=== PATIENT | female | born 1990 | race Caucasian/White ===

== ENCOUNTER 2021-05-09 14:09 | Emergency (ER) | payer SELFPAY ==
[~2021-05-09] VITALS: Ht 170.2 cm; Wt 123.0 kg
--- NOTE | 2021-05-09 15:36 | PHYS DOC ---
Past History Additional Past Medical Histor: DDD, vertigo Past Surgical History: Tonsillectomy Additional Past Surgical Histo: left knee Alcohol Use: None General Adult EDM: Chief Complaint: LOWER EXTREMITY SWELLING HPI: HPI: 30-year-old female presents with bilateral lower extremity swelling. In fact, she feels like she has increased swelling in her face and hands as well. She is unsure why this is happened. Its been this way for a couple of days. It does not improve at night. She has had similar episodes of lower leg swelling in the past that went away on its own. She was previously told that she had a low potassium once but that is all. No history of heart failure or other cardiac issues. Patient also complains about multiple open sores on her body. She states that she got burned from recycling of battery on her arms but is unsure why she has sores on her scalp. She denies fever or chills. Review of Systems: Review of Systems: Constitutional: Denies fever or chills Eyes: Denies change in visual acuity HENT: Denies nasal congestion or sore throat Respiratory: Denies cough or shortness of breath Cardiovascular: Bilateral lower extremity edema GI: Denies abdominal pain, nausea, vomiting, bloody stools or diarrhea : Denies dysuria Musculoskeletal: Denies back pain or joint pain Integument: Open sores of the face and scalp Neurologic: Denies headache, focal weakness or sensory changes Endocrine: Denies polyuria or polydipsia Lymphatic: Denies swollen glands Psychiatric: Denies depression or anxiety Allergies: Allergies: Allergies Coded Allergies Type Severity Reaction Last Updated Verified Penicillins Allergy Unknown 05/09/21 Yes codeine Allergy Unknown 05/09/21 Yes Uncoded Allergies Type Severity Reaction Last Updated Verified SULFA Allergy Unknown 05/09/21 Physical Exam: PE: Constitutional: Well developed, well nourished, morbidly obese, no acute distress, non-toxic appearance. [] HENT: Normocephalic, atraumatic, bilateral external ears normal, oropharynx moist, no oral exudates, nose normal. [] Eyes: PERRLA, EOMI, conjunctiva normal, no discharge. [] Neck: Normal range of motion, no tenderness, supple, no stridor. [] Cardiovascular: Heart rate regular rhythm, no murmur [] Lungs & Thorax: Bilateral breath sounds clear to auscultation [] Abdomen: Bowel sounds normal, soft, no tenderness, no masses, no pulsatile masses. [] Skin: Multiple open sores of different ages on the patient's bilateral arms, face, and scalp. No obvious cellulitis or abscess. [] Back: No tenderness, no CVA tenderness. [] Extremities: No tenderness, no cyanosis, no clubbing, ROM intact, 2+ nonpitting edema of the bilateral lower extremities up to the knee. [] Neurologic: Alert and oriented X 3, normal motor function, normal sensory function, no focal deficits noted. [] Psychologic: Affect normal, judgement normal, mood normal. [] Current Patient Data: Vital Signs: Vital Signs Date Time Temp Pulse Resp B/P (MAP) Pulse Ox O2 Delivery O2 Flow Rate FiO2 05/09/21 14:20 105 18 147/113 98 Room Air EKG: EKG: [] Radiology/Procedures: Radiology/Procedures: [] Heart Score: C/O Chest Pain: N/A Risk Factors: Risk Factors: DM, Current or recent (<one month) smoker, HTN, HLP, family history of CAD, obesity. Risk Scores: Score 0 - 3: 2.5% MACE over next 6 weeks - Discharge Home Score 4 - 6: 20.3% MACE over next 6 weeks - Admit for Clinical Observation Score 7 - 10: 72.7% MACE over next 6 weeks - Early Invasive Strategies Course & Med Decision Making: Course & Med Decision Making Pertinent Labs and Imaging studies reviewed. (See chart for details) The patient's labs are unremarkable. She did not state being on any prescription medications. I find it odd that her urine drug screen is positive for methamphetamines. I suspect this may have more to do with the open sores on her body and the weird swelling. I am concerned for infection so I will place her on Keflex for a week. I have given her a gram of Rocephin in the ED. She is stable for discharge at this time. [] Jeff Disclaimer: Jeff Disclaimer: This electronic medical record was generated, in whole or in part, using a voice recognition dictation system. Departure Departure: Impression: Primary Impression: Methamphetamine use Additional Impression: Swelling of lower extremity Disposition: HOME / SELF CARE / HOMELESS Condition: STABLE Referrals: PCP,NO (PCP) Patient Instructions: Methamphetamine Abuse, Complications Scripts Cephalexin (CEPHALEXIN) 500 Mg Tablet 1 TAB PO TID for cellulitis for 7 Days, #21 TAB Prov: RENATE SALDIVAR DO 05/09/21 RENATE SALDIVAR DO May 09, 2021 15:36
[2021-05-09] MEDS ORDERED: cefTRIAXone SODIUM 1 GM VIAL ONE (15:43)
[2021-05-09] MEDS ORDERED: IV NORMAL SALINE 50ML 50 ML ONE (15:43)
[2021-05-09 15:51] LABS: BASO % 1 % (0-3); EOS # 0.1 x10^3/uL (0.0-0.7); EOS % 1 % (0-3); HEMATOCRIT 35.7 % (36.0-47.0); HEMOGLOBIN 11.4 g/dL (12.0-15.5); LYMPH # 2.1 x10^3/uL (1.0-4.8); LYMPH % 33 % (24-48); MEAN CORPUSCULAR HEMOGLOBIN 24 pg (25-35); MEAN CORPUSCULAR HGB CONC 32 g/dL (31-37); MEAN CORPUSCULAR VOLUME 74 fL (79-100); MONO # 0.5 x10^3/uL (0.0-1.1); MONO % 8 % (0-9); NEUT # 3.7 x10^3uL (1.8-7.7); NEUT % 57 % (31-73); PLATELET COUNT 190 x10^3/uL (140-400); RED BLOOD COUNT 4.82 x10^6/uL (3.50-5.40); RED CELL DISTRIBUTION WIDTH 17.4 % (11.5-14.5); WHITE BLOOD COUNT 6.4 x10^3/uL (4.0-11.0)
[2021-05-09 16:00] LABS: CALCIUM 8.9 mg/dL (8.5-10.1); CREATININE 0.8 mg/dL (0.6-1.0); GFR 83.7; POTASSIUM 3.2 mmol/L (3.5-5.1)
[2021-05-09 16:14] LABS: ALBUMIN 3.3 g/dL (3.4-5.0); ALBUMIN/GLOBULIN RATIO 0.8 (1.0-1.7); TOTAL BILIRUBIN 0.5 mg/dL (0.2-1.0); TOTAL PROTEIN 7.3 g/dL (6.4-8.2)
[2021-05-09 16:49] LABS: BARBITURATES NEG (NEG); BENZODIAZEPINES NEG (NEG); CANNABINOIDS NEG (NEG); COCAINE NEG (NEG); METHADONE NEG (NEG); OPIATES NEG (NEG); PHENCYCLIDINE NEG (NEG)
[2021-05-09 16:50] LABS: AMPHETAMINE/METHAMPHETAMINE POS (NEG)
[2021-05-09 17:02] VITALS: BP 151/86
[2021-05-09 17:13] LABS: BILIRUBIN,URINE NEG (NEG); CLARITY,URINE HAZY; COLOR,URINE YELLOW; GLUCOSE,URINE NEG (NEG); NITRITE,URINE NEG (NEG)
[2021-05-09 17:16] LABS: BACTERIA,URINE 0 /HPF (0-FEW); RBC,URINE OCC /HPF (0-2); SQUAMOUS EPITHELIAL CELL,UR FEW /LPF
[2021-05-09] MEDS ORDERED: CEPH500T PO (17:29)
== END 2021-05-09 17:47 | disposition home or self-care (01) ==
LOC: ER 14:09
DX: F15.90 Other stimulant use, unspecified, uncomplicated (principal); R22.43 Localized swelling, mass and lump, lower limb, bilateral; E66.01 Morbid (severe) obesity due to excess calories; Z88.0 Allergy status to penicillin; Z88.5 Allergy status to narcotic agent; Z68.41 Body mass index [BMI] 40.0-44.9, adult
CPT/HCPCS: 36415; 80053; 80307; 81001; 83880; 85025; 87086; 96365; 99284; J0696